=== PATIENT | male | born 1975 | race Caucasian/White ===

== ENCOUNTER 2022-06-08 08:05 | Emergency (ER) | payer MEDICAID ==
[~2022-06-08] VITALS: Ht 190.5 cm; Wt 96.2 kg
--- NOTE | 2022-06-08 08:20 | NUR ---
RECEIVED PT FROM DENNIS MORALES. PT BIB SELF FOR C/O ABDOMINAL PAIN 11/23 X4 DAYS, STATES PAIN RADIATES TO BACK. PT IS AAOX4. ON R/A. NORMAL S1S2 NOTED. DISTAL PULSES NORMAL, SKIN WARM, CDI, NO EDEMA. SIDERAILS UP X2.
--- NOTE | 2022-06-08 09:01 | NUR ---
DR. LOJA AT BEDSIDE TO ASSESS PT.
--- NOTE | 2022-06-08 09:11 | NUR ---
TORADOL 15MG IVP GIVEN TO RIGHT DELTOID, SITE WNL. COVERED WITH CDI BANDAID.
[2022-06-08] MEDS ORDERED: KETOROLAC TROMETHAMINE 15 MG VIAL IM ONE (09:15)
[2022-06-08] MEDS ORDERED: IBUP-1970 PO (10:38)
[2022-06-08] MEDS ORDERED: LIDO120C7 TP (10:38)
[2022-06-08] MEDS ORDERED: ACET-2634 PO (10:38)
--- NOTE | 2022-06-08 10:46 | NUR ---
DR. LOJA AT BEDSIDE TO DISCUSS POC.
--- NOTE | 2022-06-08 10:46 | NUR ---
R/T AT BEDSIDE DOING I/S AND TEACH
[2022-06-08 11:01] VITALS: BP_SYST 140
--- NOTE | 2022-06-08 11:05 | NUR ---
Patient given written and verbal discharge instructions and verbalizes understanding. ER MD discussed with patient the results and treatment provided. Patient in stable condition. ID arm band removed. IV catheter removed intact and dressing applied, no active bleeding. Rx of TYLENOL/IBUPROFEN/LIDOCAINE given. Patient educated on pain management and to follow up with PMD. Pain Scale 2/10. Opportunity for questions provided and answered. Medication side effect fact sheet provided.
== END 2022-06-08 11:05 | disposition home or self-care (01) ==
LOC: SED 08:05
DX: S22.31XA Fracture of one rib, right side, initial encounter for closed fracture (principal); Z79.899 Other long term (current) drug therapy; V58.4XXA Person boarding or alighting a pick-up truck or van injured in noncollision transport accident, initial encounter; Y93.89 Activity, other specified; Y92.89 Other specified places as the place of occurrence of the external cause; Y99.8 Other external cause status
CPT/HCPCS: 99283; 71100; 96372; J1885